=== PATIENT | male | born 1990 | race Two or more races ===

== ENCOUNTER 2022-07-05 23:49 | Emergency (ER) | payer OTHER ==
[~2022-07-05] VITALS: Ht 182.9 cm; Wt 131.8 kg
[2022-07-06 00:12] VITALS: BP 123/79
== END 2022-07-06 01:05 | disposition home or self-care (01) ==
LOC: ER 23:49
DX: R00.0 Tachycardia, unspecified (principal); Z88.6 Allergy status to analgesic agent
CPT/HCPCS: 93005